=== PATIENT | female | born 1995 | race Caucasian/White ===

== ENCOUNTER 2024-06-08 17:04 | Inpatient (IN) | payer OTHER, SELFPAY ==
[2024-06-08] VITALS (8 sets, daily range): BP systolic 121–137; BP diastolic 63–90; PULSE 86–99; RESP 16; TEMP 36.4–37.4; O2SAT 97; BMI 36.6
--- NOTE | 2024-06-08 17:53 | PM.OBHPLI ---
OB - H&P: HPI Labor/Induction History of Present Illness Time Seen by Provider: 17:53 Date Seen: 06/08/24 Chief Complaint: The patient is a 29 year old 2 para 0 at 37.6 weeks gestation by LMP and consistent with 8 week ultrasound, who presents with for IOL for chronic hypertension on labetalol, polyhydramnios and likely macrosomia. Chief complaint: IOL for Pre-e, poly & macro : 2 Para: 0 Date of last menstrual period: 09/20/23 Estimated date of delivery: 06/26/24 Gestational age based on last menstrual period: 37 Indications for induction: maternal hypertension Narrative: Matt Ragland is a 29 year old female 2 para 0 at 37.6 weeks gestation by LMP and consistent with 8 week ultrasound, who presents with for IOL for chronic hypertension on labetalol, polyhydramnios and likely macrosomia. She has felt well without symptoms of preeclampsia. Labs have been reassuring. EFW 94%, AC > 97%. EFW 3765 grams at 35.6 weeks Polyhydramnios, SDP of 11.9 cm History of Present Dating criteria: based on LMP (consistent with 8 week ultrasound) care: good care Ultrasounds: normal 1st trimester US, normal mid trimester US and abnormal US findings (Poly and likely macrosomia) complications: chronic hypertension Labs Blood type: O (+) positive Rubella: immune RPR/VDLR: nonreactive GBS status: negative HBsAG: negative Review of Systems Status of ROS: Reports: 10 or more systems reviewed and unremarkable except as noted in History and below Meds Home Medications and Allergies Home Medications ?Medication ?Instructions ?Recorded ?Confirmed ?Type aspirin 81 mg tablet,delayed 81 mg PO DAILY 06/08/24 06/08/24 History release doxylamine succinate 25 mg tablet 25 mg PO QHS PRN 06/08/24 06/08/24 History (Unisom (doxylamine)) labetalol 100 mg tablet 100 mg PO BID 06/08/24 06/08/24 History vitamins no.148-iron 27 2 cap PO DAILY 06/08/24 06/08/24 History mg-folate 1 mg-dha 205 mg capsule Allergies Allergy/AdvReac Type Severity Reaction Status Date / Time No Known Drug Allergies Allergy Verified 06/08/24 17:55 OB - H&P: Exam Physical Exam: Vital signs: Temp Pulse Resp BP Pulse Ox 99.3 F 86 16 130/86 97 06/08/24 17:26 06/08/24 17:25 06/08/24 17:26 06/08/24 17:25 06/08/24 17:22 Constitutional: Constitutional: no acute distress Routine HEENT Exam: Head: Present atraumatic and normal inspection Routine Neck Exam: Neck: Present full ROM Detailed Neck Exam: Thyroids: Thyroid: Present normal Routine Respiratory Exam: Respiratory: Present CTA bilaterally Routine Cardiovascular Exam: Cardiovascular: RRR, S1 and S2 Detailed Labor and Delivery Exam: Patient Gravid: Yes Dilation (cm): 0 Effacement (%): 0 Cervix position: posterior Consistency: medium Cervical ripeness score: 1 Tachysystole: No Fetus (Single): Station: -3 Amniotic Membrane Status: intact Heart Rate Baseline: 130 Monitor Accelerations: Present Monitor Decelerations: None Ride Operator Variability: Moderate (6-25) Routine Back/Spine/Pelvis Exam: Back/Spine: full ROM Routine Skin Exam: Present intact Routine Neurological Exam: Present alert and oriented X3 Routine Psychiatric Exam: Present normal affect OB - Problem Based A/P Additional Plan (1) Term : Status: Acute (2) Polyhydramnios affecting : Problem details: SDP last week was 9.7 (KIARA 29) Status: Acute (3) macrosomia: Problem details: Most recent measurement was 94% with abdominal circumference >97% Status: Acute (4) Chronic hypertension affecting : Problem details: on labetalol 200 mg bid. Preeclampsia labs reassuring. Status: Acute Plan - cytotec vaginally now - baseline preeclampsia labs now Delivery/Labor/Induction Plan Plan: induction Induction method: per misoprostol protocol
[2024-06-08] MEDS: miSOPROStoL 25 MCG/0.25 TABLET VAGINAL ×2 (18:13→21:13)
[2024-06-08 18:45] LABS: Hematocrit 36.2 % (33.0-51.0); Mean Corpuscular HGB Conc 33 gm/dL (32-36); Mean Corpuscular Hemoglobin 28 pg (26-34); Mean Corpuscular Volume 84 fL (80-100); Platelet Count* 131 K/uL (140-440); White Blood Count* 8.45 K/uL (4.50-11.00)
[2024-06-08 19:07] LABS: Slide Review Reflex No
[2024-06-08 19:19] LABS: Alanine Aminotransferase* 13 U/L (4-35); Aspartate Amino Transferase* 22 U/L (12-35); Blood Urea Nitrogen* 13 mg/dL (5-24); Creatinine* 0.6 mg/dL (0.5-1.5); Est. Creatinine Clearance* 114.44; Estimated Glomerular Filt Rate 125 ml/min
[2024-06-08] MEDS: LABETALOL HCL 100 MG TABLET 200 MG PO (21:06)
[2024-06-09] VITALS (116 sets, daily range): BP systolic 111–183; BP diastolic 63–112; PULSE 64–96; RESP 16; TEMP 36.4–37; O2SAT 93–100
[2024-06-09] MEDS: miSOPROStoL 25 MCG/0.25 TABLET VAGINAL ×3 (00:13→08:38)
--- NOTE | 2024-06-09 06:57 | P.OBPN_ITS ---
Subjective Time Seen by Provider: 06:57 Date Seen: 06/09/24 Narrative: Patient slept well overnight between cytotec doses. She received 4 doses (last at 0520) vaginally. Objective Exam: resting comfortably, NAD Vital Signs: Last Vital Signs Temp 98.4 F 06/09/24 05:29 Pulse 78 06/09/24 05:26 Resp 16 06/09/24 05:29 BP 118/70 06/09/24 05:26 Pulse Ox 97 06/08/24 17:30 Comments: Blood pressures have been appropriate overnight on current dose of labetalol. Pelvic Exam Dilation (cm): 1 Effacement (%): 60 Station: -2 Comments: medium consistency, anterior cervix. Cephalic position confirmed by ultrasound Contractions Monitor mode: External Contraction Frequency: 2-5 Contraction pattern: Irregular Contraction intensity: Mild Pitocin Rate (mU/min): 0 Assessment Assessment: induction ongoing Station: -2 Status: Category l Heart Rate Baseline: 130 Cutlery Grinder Variability: Moderate (6-25) Monitor Accelerations: Present Monitor Decelerations: None Labor Progress: Esparza score 7. Will have RN team check when due for next cytotec dose. If Esparza score is 8 or more, will start pitocin. If <8 will do additional cytotec dose. Plan Plan: - continue induction of labor - continue monitoring blood pressure
[2024-06-09] MEDS: LABETALOL HCL 100 MG TABLET 200 MG PO ×2 (08:12→19:33)
[2024-06-09] MEDS: ACETAMINOPHEN 500 MG TABLET 1000 MG PO (08:18)
[2024-06-09] MEDS: LACTATED RINGERS 500 ML 500 ML 1000 ML IV (09:42)
[2024-06-09] MEDS: LACTATED RINGERS 1000 ML 1,000 ML 125 ML IV ×2 (12:38→14:22)
[2024-06-09] MEDS: OXYTOCIN 30 unit/500 ML in NS 30 UNIT/500 ML BAG IVPB (12:40)
--- NOTE | 2024-06-09 16:05 | P.OBPN_ITS ---
Subjective Time Seen by Provider: 16:05 Date Seen: 06/09/24 Narrative: Patient is not feeling much for contractions. She is comfortable in bed. She received 5 doses of cytotec and pitocin was started at 12:45. Objective Exam: resting comfortably, NAD Vital Signs: Last Vital Signs Temp 97.6 F 06/09/24 16:03 Pulse 68 06/09/24 16:04 Resp 16 06/09/24 05:29 BP 183/112 H 06/09/24 16:04 Pulse Ox 99 06/09/24 16:02 Pelvic Exam Dilation (cm): 1 Effacement (%): 60 Station: -2 Contractions Monitor mode: External Contraction Frequency: 1-3 Contraction pattern: Irregular Contraction intensity: Mild Pitocin Rate (mU/min): 2 Assessment Assessment: induction ongoing Station: -2 Status: Category l Heart Rate Baseline: 130 Intermediate Variability: Moderate (6-25) Monitor Accelerations: Present Monitor Decelerations: Late (one late decel while declined in recliner. ) Labor Progress: Unfortunately, cervix is still not favorable after 5 doses of cytotec and low dose pitocin. [place] but not feeling any pain. Plan Plan: - After discussion with patient, and Dr. Cifuentes (DIAMOND MOUNTER) about options, we elect to place cook catheter, provide pitocin break and restart pitocin at 1830 this evening with low dose pitocin. - Cook catheter placed with 60 and 60 mls in intrauterine and vaginal balloons-- patient tolerated this well. - unfortunately, patient had persistent bp >160/110 after cook catheter. Required IV labetalol and initiation of magnesium per protocol for superimposed preeclampsia with severe features. - Anticipate
[2024-06-09] MEDS: LABETALOL HCL 5 MG/ML inj IVP ×3 (16:32→19:05)
[2024-06-09] MEDS: MAGNESIUM IV 4 GM/100 ML PIGGYBACK IVPB (16:50)
[2024-06-09] MEDS: MAGNESIUM Infusion 40 GM/1,000 ML IV.SOLN IVPB (17:24)
[2024-06-09 17:44] LABS: Hematocrit 38.7 % (33.0-51.0); Hemoglobin* 12.8 gm/dL (12.0-16.0); Mean Corpuscular HGB Conc 33 gm/dL (32-36); Mean Corpuscular Hemoglobin 28 pg (26-34); Mean Corpuscular Volume 85 fL (80-100); Platelet Count* 131 K/uL (140-440); Red Blood Count 4.53 m/uL (4.00-5.20); Slide Review Reflex No; White Blood Count* 10.97 K/uL (4.50-11.00)
[2024-06-09 18:04] LABS: Alanine Aminotransferase* 13 U/L (4-35); Aspartate Amino Transferase* 25 U/L (12-35); Creatinine* 0.6 mg/dL (0.5-1.5); Est. Creatinine Clearance* 114.44; Estimated Glomerular Filt Rate 125 ml/min
[2024-06-09 18:05] LABS: Blood Urea Nitrogen* 10 mg/dL (5-24)
[2024-06-09 18:42] LABS: Creatinine Urine 31.7 mg/dL; Total Protein Urine 16 mg/dL
[2024-06-09 23:48] LABS: Hematocrit 40.3 % (33.0-51.0); Hemoglobin* 13.4 gm/dL (12.0-16.0); Mean Corpuscular HGB Conc 33 gm/dL (32-36); Mean Corpuscular Hemoglobin 28 pg (26-34); Mean Corpuscular Volume 84 fL (80-100); Platelet Count* 145 K/uL (140-440); White Blood Count* 11.82 K/uL (4.50-11.00)
[2024-06-09 23:54] LABS: Slide Review Reflex No
[2024-06-10] VITALS (266 sets, daily range): BP systolic 95–171; BP diastolic 53–95; PULSE 57–120; RESP 16–18; TEMP 36.4–36.9; O2SAT 61–100
[2024-06-10 00:05] LABS: Alanine Aminotransferase* 13 U/L (4-35); Aspartate Amino Transferase* 26 U/L (12-35); Blood Urea Nitrogen* 8 mg/dL (5-24); Creatinine* 0.5 mg/dL (0.5-1.5); Est. Creatinine Clearance* 137.33; Estimated Glomerular Filt Rate 130 ml/min
[2024-06-10] MEDS: KETOROLAC 30 MG/ML inj IVP (00:07)
[2024-06-10 00:16] LABS: Magnesium* 4.6 mg/dL (1.5-2.6)
[2024-06-10] MEDS: LACTATED RINGERS 1000 ML 1,000 ML 75 ML IV ×3 (04:24→22:15)
[2024-06-10] MEDS: ACETAMINOPHEN 500 MG TABLET 1000 MG PO ×2 (05:35→13:44)
[2024-06-10] MEDS: LABETALOL HCL 100 MG TABLET 200 MG PO ×2 (06:28→19:05)
[2024-06-10 07:27] LABS: Hematocrit 39.8 % (33.0-51.0); Hemoglobin* 13.2 gm/dL (12.0-16.0); Mean Corpuscular HGB Conc 33 gm/dL (32-36); Mean Corpuscular Hemoglobin 28 pg (26-34); Mean Corpuscular Volume 84 fL (80-100); Platelet Count* 155 K/uL (140-440); Red Blood Count 4.72 m/uL (4.00-5.20); White Blood Count* 12.19 K/uL (4.50-11.00)
[2024-06-10 07:29] LABS: Slide Review Reflex No
--- NOTE | 2024-06-10 07:47 | PM.OBPNL ---
Subjective Time Seen by Provider: 07:48 Date Seen: 06/10/24 Narrative: Patient feels contractions are a bit more painful. She breathes through some. Tolerating magnesium without difficulty. Had episode last evening of severe range blood pressures requiring 20,40,60 and then 80 of labetalol. We dosed her next dose of oral labetalol and things improved. She did not have any high range blood pressures overnight. Objective Exam: Standing at bedside, heating pad on back. Vital Signs: Last Vital Signs Temp 98.1 F 06/10/24 07:03 Pulse 77 06/10/24 07:06 Resp 16 06/10/24 07:03 BP 134/92 H 06/10/24 07:06 Pulse Ox 99 06/10/24 07:08 Pelvic Exam Dilation (cm): 5 Effacement (%): 80 Station: -2 Contractions Monitor mode: External Contraction pattern: Regular Contraction intensity: Strong/Firm Pitocin Rate (mU/min): 12 Assessment Assessment: induction ongoing Station: -2 Amniotic Membrane Status: SROM Status: Category l Heart Rate Baseline: 120 Card Hanger Variability: Moderate (6-25) Monitor Accelerations: Present Monitor Decelerations: Variable Labor Progress: Slow progress Plan Plan: - continue to titrate pitocin - If not making change on next check, have discussed Internal monitors - plans on epidural, will likely get soon. - continuing to monitor blood pressures.
[2024-06-10 07:52] LABS: Creatinine* 0.5 mg/dL (0.5-1.5); Est. Creatinine Clearance* 137.33; Estimated Glomerular Filt Rate 130 ml/min
[2024-06-10 07:53] LABS: Alanine Aminotransferase* 13 U/L (4-35); Aspartate Amino Transferase* 25 U/L (12-35); Blood Urea Nitrogen* 8 mg/dL (5-24)
[2024-06-10 07:59] LABS: Magnesium* 5.1 mg/dL (1.5-2.6)
[2024-06-10] MEDS: ROPIVACAINE 0.2% 100 ml 100 ML 12 MG EPIDURAL ×2 (09:55→16:56)
[2024-06-10] MEDS: BUPIVACAINE 0.25% PF 10 ML 10 ML ML EPIDURAL (09:56)
--- NOTE | 2024-06-10 10:08 | P.ANBPRC_ITS ---
PFSH PFSH Social History What is your current living situation?: I presently have a place to live Problems where you live: no known problems In the past 12 months, utilities in danger of being shut off: no In past 12 months, lack of transportation kept you from medical appts, meetings, work, or getting things needed for daily living: no In the past 12 mos, have been you worried that your food would run out before you had money to buy more?: never true In the past 12 mos, the food you bought just didn't last and you didn't have money to buy more?: never true Smoking Status: Never smoker How often does anyone, including family, friends and others, physically hurt you : never How often does anyone, including family, friends and others, insult or talk down to you: never How often does anyone, including family, friends and others, threaten you with harm: never How often does anyone, including family, friends and others, scream or curse at you: never Meds Home Medications and Allergies Home Medications ?Medication ?Instructions ?Recorded ?Confirmed ?Type aspirin 81 mg tablet,delayed 81 mg PO DAILY 06/08/24 06/08/24 History release doxylamine succinate 25 mg tablet 25 mg PO QHS PRN 06/08/24 06/08/24 History (Unisom (doxylamine)) labetalol 100 mg tablet 200 mg PO BID 06/08/24 06/08/24 History vitamins no.148-iron 27 2 cap PO DAILY 06/08/24 06/08/24 History mg-folate 1 mg-dha 205 mg capsule Allergies Allergy/AdvReac Type Severity Reaction Status Date / Time No Known Drug Allergies Allergy Verified 06/08/24 17:55 Results Labs Labs: Laboratory Results - last 24 hr 06/09/24 06/09/24 06/09/24 16:58 17:39 23:30 WBC 10.97 11.82 H RBC 4.53 4.80 Hgb 12.8 13.4 Hct 38.7 40.3 MCV 85 84 MCH 28 28 MCHC 33 33 Plt Count 131 L 145 BUN 10 8 Creatinine 0.6 0.5 Estimated Creat Clear 114.44 137.33 Estimated GFR 125 130 Magnesium 4.6 H* AST 25 26 ALT 13 13 Urine Creatinine 31.7 Protein/Creatinin Ratio 0.50 H Urine Total Protein 16 06/10/24 06:30 WBC 12.19 H RBC 4.72 Hgb 13.2 Hct 39.8 MCV 84 MCH 28 MCHC 33 Plt Count 155 BUN 8 Creatinine 0.5 Estimated Creat Clear 137.33 Estimated GFR 130 Magnesium 5.1 H* AST 25 ALT 13 Urine Creatinine Protein/Creatinin Ratio Urine Total Protein Vital Signs Vital Signs: Last Vital Signs Temp 98 F 06/10/24 10:00 Pulse 72 06/10/24 10:07 Resp 16 06/10/24 07:03 BP 128/90 H 06/10/24 10:07 Pulse Ox 99 06/10/24 10:08 Weight: 92.986 kg Height: 160.02 cm Anesthesia Procedures Epidural Insertion Patient Location: OB Start Time: : Stop Time: : Start Date: 06/10/24 Stop Date: 06/10/24 Reason for Block: procedure for pain Patient Position: sitting Performed By: Vernon Brumfield Preanesthetic Checklist: IV checked, risks and benefits discussed, monitors and equipment checked, pre-op evaluation, timeout performed and anesthesia consent Prep: chlorhexidine gluconate Monitoring: blood pressure monitoring, continuous pulse oximetry and heart rate Approach: midline Vertebral Space: lumbar (1-5) Epidural Technique: BENNIE saline Needle Type: Tuohy needle Injection Technique: continuous catheter Needle gauge: 17 Needle Length (cm): 10 cm Needle Insertion Depth (cm): 7 Catheter Gauge: 19 Catheter Type: multi-orifice Catheter at skin depth (cm): 13 Test Dose Result: negative and lidocaine 1.5% with epinephrine 1 to 200,000
[2024-06-10] MEDS: MAGNESIUM Infusion 40 GM/1,000 ML IV.SOLN IVPB (10:27)
[2024-06-10 11:09] LABS: Hematocrit 39.7 % (33.0-51.0); Hemoglobin* 13.1 gm/dL (12.0-16.0); Mean Corpuscular HGB Conc 33 gm/dL (32-36); Mean Corpuscular Hemoglobin 28 pg (26-34); Mean Corpuscular Volume 85 fL (80-100); Platelet Count* 141 K/uL (140-440); Red Blood Count 4.68 m/uL (4.00-5.20); White Blood Count* 12.03 K/uL (4.50-11.00)
[2024-06-10 11:10] LABS: Slide Review Reflex No
[2024-06-10] MEDS: PHENYLEPHRINE 100 MCG/ML SYRINGE IVP (11:21)
[2024-06-10 11:24] LABS: Creatinine* 0.7 mg/dL (0.5-1.5); Est. Creatinine Clearance* 98.09; Estimated Glomerular Filt Rate 120 ml/min
[2024-06-10 11:25] LABS: Alanine Aminotransferase* 14 U/L (4-35); Aspartate Amino Transferase* 27 U/L (12-35); Blood Urea Nitrogen* 8 mg/dL (5-24)
[2024-06-10 11:27] LABS: Magnesium* 5.7 mg/dL (1.5-2.6)
--- NOTE | 2024-06-10 11:28 | P.OBPN_ITS ---
Subjective Time Seen by Provider: 11: Date Seen: 06/10/24 Narrative: comfortable with Epidural, slightly shaky Objective Exam: resting comfortably, NAD Vital Signs: Last Vital Signs Temp 98 F 06/10/24 10:00 Pulse 77 06/10/24 11:28 Resp 16 06/10/24 07:03 BP 108/63 06/10/24 11:28 Pulse Ox 100 06/10/24 11:28 Pelvic Exam Dilation (cm): 5 Effacement (%): 80 Station: -2 Contractions Monitor mode: External Contraction Frequency: 4 Contraction pattern: Regular Contraction intensity: Strong/Firm Pitocin Rate (mU/min): 12 Assessment Assessment: induction ongoing Station: -2 Amniotic Membrane Status: SROM Status: Category l Heart Rate Baseline: 115 Residential Variability: Moderate (6-25) Monitor Accelerations: Present Monitor Decelerations: Variable Plan Plan: - Internal monitors placed, will titrate to adequte MVUs. - hypotensive after epidural, treated appropriately by nursing - continue to monitor closely -Dr. Damian Tovar (AIR CONTROL ELECTRONICS OPERATOR) given update in case of failure to progress
[2024-06-10] MEDS: LACTATED RINGERS 1000 ML 1,000 ML IV (13:36)
--- NOTE | 2024-06-10 15:09 | P.OBPN_ITS ---
Subjective Time Seen by Provider: 15:09 Date Seen: 06/10/24 Narrative: Patient's heart tracing has had some decreased variability with small accels. No decels. We have tried juice, fluid bolus, position changes without change in variability. Objective Exam: resting comfortably Vital Signs: Last Vital Signs Temp 98 F 06/10/24 15:04 Pulse 99 06/10/24 15:08 Resp 16 06/10/24 07:03 BP 118/70 06/10/24 15:08 Pulse Ox 98 06/10/24 15:09 Pelvic Exam Dilation (cm): 5-6 Effacement (%): 80 Station: -2 Comments: (Exam per nursing) Contractions Monitor mode: External Contraction Frequency: 5 Contraction pattern: Regular Contraction intensity: Strong/Firm Pitocin Rate (mU/min): 19 Assessment Assessment: induction ongoing Station: -2 Amniotic Membrane Status: SROM Status: Category l Heart Rate Baseline: 115 Clinical Trials Assistant Variability: Minimal (3-5) Monitor Accelerations: Present Monitor Decelerations: None Tracing Comments: I reviewed FHT with Dr. Damian Tovar who is BLOW MACHINE TENDER STARCH [employer]AYING on today. She reviewed strip and agreed there was decreased variability. However, given no decels, felt it was appropriate to continue induction of labor at this time. We discussed that if decels were to occur, that would be sign of distress and would be indication for delivery. Labor Progress: IUPC in place, not quite adequate MVUs. Good labor pattern. Continuing to titrate pitocin to maximum of 30 units of pitocin. Plan Plan: - Continue continuous FHT - continue titration of pitocin until MVU adequate
[2024-06-10 17:05] LABS: Hematocrit 37.5 % (33.0-51.0); Hemoglobin* 12.4 gm/dL (12.0-16.0); Mean Corpuscular HGB Conc 33 gm/dL (32-36); Mean Corpuscular Hemoglobin 28 pg (26-34); Mean Corpuscular Volume 85 fL (80-100); Platelet Count* 138 K/uL (140-440); White Blood Count* 12.23 K/uL (4.50-11.00)
[2024-06-10 17:06] LABS: Slide Review Reflex No
[2024-06-10] MEDS: LIDOCAINE 2% (PF) 5 ML VIAL EPIDURAL (17:19)
[2024-06-10 17:21] LABS: Alanine Aminotransferase* 13 U/L (4-35); Aspartate Amino Transferase* 25 U/L (12-35); Blood Urea Nitrogen* 9 mg/dL (5-24); Creatinine* 0.8 mg/dL (0.5-1.5); Est. Creatinine Clearance* 85.83; Estimated Glomerular Filt Rate 102 ml/min
[2024-06-10 17:25] LABS: Magnesium* 5.9 mg/dL (1.5-2.6)
[2024-06-10] MEDS: fentaNYL 100 MCG/2 ML inj EPIDURAL ×2 (18:18→21:29)
--- NOTE | 2024-06-10 18:47 | P.OBPN_ITS ---
Subjective Time Seen by Provider: 18:30 Date Seen: 06/10/24 Narrative: Mom noting some back pain on right with contractions, anesthesia just adjusted epidural due to prior abdominal pain window which has improved. BP's below treatable levels per RN. Objective Vital Signs: Last Vital Signs Temp 97.6 F 06/10/24 18:07 Pulse 79 06/10/24 18:20 Resp 16 06/10/24 07:03 BP 137/91 H 06/10/24 18:20 Pulse Ox 100 06/10/24 18:45 Pelvic Exam Dilation (cm): 10 Effacement (%): 100 Station: -1 Contractions Monitor mode: Internal Contraction Frequency: q3-5min Contraction pattern: Regular Contraction intensity: Strong/Firm Pitocin Rate (mU/min): 23 Assessment Assessment: active labor Station: -1 Amniotic Membrane Status: SROM Heart Rate Baseline: 120 Lodging House Keeper Variability: Minimal (3-5) Monitor Accelerations: Present Monitor Decelerations: None Plan Plan: pt has made significant change, now complete, plan to start pushing. OB surgeon system integration engineer and peds provider updated with plan. BP's below IV treatment levels, continue to monitor
[2024-06-10] MEDS: ONDANSETRON 2 MG/ML inj 4 MG IV (19:32)
[2024-06-10] MEDS: LIDOCAINE 2% (PF) 5 ML VIAL 3 ML EPIDURAL (21:30)
--- NOTE | 2024-06-10 22:13 | PM.OBPNL ---
Subjective Time Seen by Provider: 22:13 Date Seen: 06/10/24 Narrative: Patient had been pushing x 2.5 hours, No significant changes. Objective Exam: Uncomfortable. Vital Signs: Last Vital Signs Temp 97.6 F 06/10/24 18:07 Pulse 88 06/10/24 22:10 Resp 16 06/10/24 07:03 BP 133/74 06/10/24 22:10 Pulse Ox 99 06/10/24 22:13 Pelvic Exam Dilation (cm): 10 Effacement (%): 100 Station: +1 Contractions Monitor mode: Internal Contraction pattern: Regular Contraction intensity: Strong/Firm Pitocin Rate (mU/min): 23 Assessment Assessment: active labor Station: +1 Amniotic Membrane Status: SROM Status: Category l Heart Rate Baseline: 110 Halfway Variability: Minimal (3-5) Monitor Accelerations: Present Monitor Decelerations: None Plan Plan: - Given 2.5 hours of pushing, now with minimal variability. Poor control of pain with Epidural. Discussed with Anesthesia ([place]) and Riveter Pneumatic (Cesia Tovar) who agree with . Will turn off pitocin and epidural so that we may proceed with spinal anesthesia.
--- NOTE | 2024-06-10 22:16 | P.OBPN_ITS ---
Subjective Time Seen by Provider: 20:30 Date Seen: 06/10/24 Narrative: Pt has been pushing for approximately 90min. She has tried various pushing positions and only tolerates pushing in high fowlers position. Objective Vital Signs: Last Vital Signs Temp 97.6 F 06/10/24 18:07 Pulse 88 06/10/24 22:10 Resp 16 06/10/24 07:03 BP 133/74 06/10/24 22:10 Pulse Ox 99 06/10/24 22:13 Pelvic Exam Dilation (cm): 10 Effacement (%): 100 Station: +1 Contractions Monitor mode: External Contraction Frequency: q3-4min Contraction pattern: Regular Contraction intensity: Strong/Firm Pitocin Rate (mU/min): 23 Assessment Assessment: active labor Station: +1 Amniotic Membrane Status: SROM Heart Rate Baseline: 120 Residential Variability: Minimal (3-5) Monitor Accelerations: Present Monitor Decelerations: Variable Tracing Comments: minimal-moderate variability. Plan Plan: Pt has been pushing for approximately 90min. She appears to be pushing affectively when I check her while pushing. Her last 2 pushes appear to be making more progress. Dr Yoon is now present and will be taking over labor management and I will remain here for pediatric coverage for baby. BP's have remained below treatment levels except for one that was taken in middle pushing, recheck was below treatment level.
[2024-06-10] MEDS: AZITHROMYCIN 500 MG in 0.9 % SODIUM CHLORIDE 250 ml 250 ML 255 MG IVPB (22:30)
[2024-06-10] MEDS: TRANEXAMIC ACID 100 MG/ML INJ 1000 MG IV (22:33)
--- NOTE | 2024-06-10 22:40 | P.OBCN_ITS ---
OB - CN: HPI Date of Consult Time Seen by Provider: 22:40 Date Seen: 06/10/24 Patient: Betzaida Patient Consult date: 06/10/24 Requesting Physician: Sona Yoon MD Primary Care Provider: Sona Yoon MD Consult Narrative Narrative: The patient is a 29 year old G 2 P 0 at 38w1d gestation that was admitted to the Center on 06/08/24 for induction of labor for preeclampsia with severe features. She progressed to completely dilated by 6:00 p.m. on 06/10/2024. She pushed for 3 hours without much progress of the vertex. There is concern for macrosomia and polyhydramnios. She is currently on magnesium. History of Present Dating criteria: based on LMP care: good care Ultrasounds: normal 1st trimester US and normal mid trimester US complications: chronic hypertension History History 2 Elective abortions Para 0 Spontaneous abortions Hx # Term Pregnancies Ectopic pregnancies Hx # Pregnancies Multiple births Number of Living Children 0 Labs Blood type: O (+) positive Rubella: immune RPR/VDLR: nonreactive GBS status: negative HBsAG: negative OB Labs: Lab Assessment Start: 06/08/24 17:14 Freq: ONCE Status: Complete Protocol: PC.OBGBS Activity Type Activity Date Activity User E-sign Co-sign Detail Recorded Client Recorded Date Recorded By Document 06/08/24 18:43 WK Desktop 06/08/24 18:44 WK 06/08/24 18:43 Lab Assessment GBS Status negative GBS Additional Criteria None No Treatment Needed OK Are Labs Available Yes Maternal Blood Type O Maternal RH Factor Positive Evaluate Maternal Rubella Immune Status Immune Hepatitis B Surface Antigen Negative Maternal HIV Status Negative Maternal Syphillis (RPR) Status Negative PFSH PFSH Social History What is your current living situation?: I presently have a place to live Problems where you live: no known problems In the past 12 months, utilities in danger of being shut off: no In past 12 months, lack of transportation kept you from medical appts, meetings, work, or getting things needed for daily living: no In the past 12 mos, have been you worried that your food would run out before you had money to buy more?: never true In the past 12 mos, the food you bought just didn't last and you didn't have money to buy more?: never true Smoking Status: Never smoker How often does anyone, including family, friends and others, physically hurt you : never How often does anyone, including family, friends and others, insult or talk down to you: never How often does anyone, including family, friends and others, threaten you with harm: never How often does anyone, including family, friends and others, scream or curse at you: never Meds Home Medications and Allergies Home Medications ?Medication ?Instructions ?Recorded ?Confirmed ?Type aspirin 81 mg tablet,delayed 81 mg PO DAILY 06/08/24 06/08/24 History release doxylamine succinate 25 mg tablet 25 mg PO QHS PRN 06/08/24 06/08/24 History (Unisom (doxylamine)) labetalol 100 mg tablet 200 mg PO BID 06/08/24 06/08/24 History vitamins no.148-iron 27 2 cap PO DAILY 06/08/24 06/08/24 History mg-folate 1 mg-dha 205 mg capsule Allergies Allergy/AdvReac Type Severity Reaction Status Date / Time No Known Drug Allergies Allergy Verified 06/08/24 17:55 OB - H&P: Exam Physical Exam: Vital signs: Temp Pulse Resp BP Pulse Ox 97.6 F 92 16 136/86 99 06/10/24 18:07 06/10/24 22:28 06/10/24 07:03 06/10/24 22:28 06/10/24 22:38 Narrative: General: Pleasant, woman in no acute distress. Vital signs: Included in her electronic medical record. EFM: 130's, moderate variability, no decels, category 2. TOCO: Q10min. SVE: complete/+1 OB - Results Labs Labs: Short CBC 06/09/24 06/10/24 06/10/24 Range/Units 23:30 06:30 11:02 WBC 11.82 H 12.19 H 12.03 H (4.50-11.00) K/uL Hgb 13.4 13.2 13.1 (12.0-16.0) gm/dL Hct 40.3 39.8 39.7 (33.0-51.0) % Plt Count 145 155 141 (140-440) K/uL 09/28/24 Range/Units 17:00 WBC 12.23 H (4.50-11.00) K/uL Hgb 12.4 (12.0-16.0) gm/dL Hct 37.5 (33.0-51.0) % Plt Count 138 L (140-440) K/uL BMP 06/09/24 06/10/24 06/10/24 23:30 06:30 11:02 BUN 8 8 8 Creatinine 0.5 0.5 0.7 06/10/24 17:00 BUN 9 Creatinine 0.8 Liver Function 06/09/24 06/10/24 06/10/24 Range/Units 23:30 06:30 11:02 AST 26 25 27 (12-35) U/L ALT 13 13 14 (4-35) U/L 06/10/24 Range/Units 17:00 AST 25 (12-35) U/L ALT 13 (4-35) U/L OB - CN: A/P Assessment and Plan (1) Term : Status: Acute (2) Polyhydramnios affecting : Problem details: SDP last week was 9.7 (KIARA 29) Status: Acute (3) macrosomia: Problem details: Most recent measurement was 94% with abdominal circumference >97% Status: Acute (4) Chronic hypertension affecting : Problem details: on labetalol 200 mg bid. Preeclampsia labs reassuring. Status: Acute Plan 1. Recommended primary low transverse section for arrest of descent. 2. Consent for primary low transverse section reviewed and signed.
--- NOTE | 2024-06-10 22:52 | P.PCN_ITS ---
Procedure Note Date Seen: 06/10/24 Date of procedure: 06/10/24 Will [facility] bill your pro fee for this procedure?: Yes Procedure: Preoperative diagnosis: 29-year-old 2 para 0 at 38 and 1/7 weeks Arrest of descent Polyhydramnios Suspected macrosomia Severe preeclampsia by blood pressure criteria Postoperative diagnosis: Same Procedure: Primary low-transverse section Anesthesia: Spinal Surgeon: Cesia Vázquez MD Client Service Consultant: Not applicable Quantitative blood loss: 463 mL IV Fluid: 650 mL Urine output: 600 mL clear fluid. Specimen: Placenta to pathology Drain(s): Martino to gravity Indications: Arrest of descent. Findings: A live male was delivered from the LOT position at 11:31 p.m.. Apgars were 7 at 1 min and 9 at 5 min, respectively. weight: 7 lb 10 oz. Nuchal cord(s): No. The placenta was delivered spontaneously and complete at 11:33 p.m. Amniotic fluid: Clear. Normal uterus, fallopian tubes and ovaries were noted. Other findings: The infant's head was significantly impacted in the pelvis that required a push from the vagina in order to deliver the 's head through the surgical field. After delivery of the placenta there was extensive uterine atony treated with 40 units Pitocin in 1 L IV fluid, g IV TXA, 1 dose Methergine 0.2 mg IM and Bakri balloon placed with 240 mL of fluid. Blood pressure at the time Methergine was given 99/60. Procedure: Matt was taken to the OR where spinal anesthetic was found be adequate. A Martino catheter was placed. The patient was then placed in the dorsal supine position with a leftward tilt. She was then prepped and draped in a normal sterile manner. A Pfannenstiel skin incision was made and carried through sharply to the underlying layer of fascia. Fascia was incised in the midline and this incision carried laterally with Almonte scissors. The superior aspect of fascial incision was grasped with Kieran clamps, tented up, and the rectus muscles dissected off with a combination of blunt and sharp dissection. The inferior aspect of the fascial incision was not dissected off the rectus. The rectus muscles were in the midline. The peritoneum was entered bluntly. This opening was extended bluntly. An Dinh-O self-retaining retractor was placed. A bladder flap was not created. Uterus was incised in a low transverse manner in the midline. This incision carried laterally with blunt pressure on the inferior and superior aspects of the uterine incision. The amniotic sac was ruptured. The 's head and body was delivered atraumatically. The infant was shown to the patient and her support person and then handed to waiting pediatric and nursing staff. The cord was clamped and cut 30 seconds after delivery. The placenta was delivered spontaneously. The uterus was cleared of clots and debris. The uterine incision was re-approximated with the uterus in vivo. The 1st layer using 0-Vicryl in a running, locked manner. The 2nd layer using 0-Monocryl in a running, vertical, imbricating layer. Additional sutures needed for hemostasis: Yes, 2 sutures of 2-0 chromic in a [id number] manner. Excellent hemostasis was verified. The Dinh retractor was removed. The rectus muscles were not reapproximated. The rectus muscles were then closely inspected to verify hemostasis. Hemostasis was obtained with bipolar cautery. The fascia was then re-approximated using 0-Maxon loop in a running manner. The subcutaneous tissue was then irrigated with saline and hemostasis obtained with bipolar cautery. The subcutaneous tissue was re-approximated using 3-0 plain gut in an interrupted manner. The skin was reapproximated using 4-0 Monocryl in a running subcuticular manner. Exophin skin adhesive and a Mepiplex dressing were applied. The patient tolerated this procedure well. Sponge, lap and instrument counts were correct x2 active to the procedure. Patient was taken to the recovery area in stable condition. The patient received 2g of IV Ancef and 500mg IV of azithromycin prior to skin incision.
[2024-06-10] MEDS: CEFAZOLIN 2 GM INJ IVP (23:20)
--- NOTE | 2024-06-10 23:54 | PM.OBPNL ---
Subjective Time Seen by Provider: 23:54 Date Seen: 06/10/24 Narrative: I was asked to stand by as pediatric provider by Dr Yoon for delivery due to maternal severe preeclampsia on magnesium, polyhydramnios and anticipated macrosomia. Stand by time was from 20:30-23:15am ([id number]). Objective Vital Signs: Last Vital Signs Temp 97.6 F 06/10/24 18:07 Pulse 92 06/10/24 22:28 Resp 16 06/10/24 07:03 BP 136/86 06/10/24 22:28 Pulse Ox 99 06/10/24 22:48
[2024-06-11] VITALS (45 sets, daily range): BP systolic 107–153; BP diastolic 67–103; PULSE 70–94; RESP 16–20; TEMP 36.5–36.9; O2SAT 97–100
--- NOTE | 2024-06-11 00:55 | W.ANESCHARGE ---
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
--- NOTE | 2024-06-11 00:55 | W.PM.NB ---
Nerve Block Nerve Block Time Seen by Provider: 00:20 Date Seen: 06/11/24 Type of block requested by surgeon for post-operative analgesia: TAP Side: bilateral Time out performed: Yes Verification of patient name: Yes Verification of date of : Yes Site marking: site marked Name of person performing procedure: Vernon Brumfield Continuous monitoring Was continuous monitoring of O2 sat, B/P, diagnostic cardiac sonographer, recorded every 15 minutes?: Yes Procedure Checklist: sterile prep, needles and gloves Ultrasound guided. Images saved: Yes Medications given in 5ml increments after negative aspiration: Marcaine %: 0.25 mL: 30 Needle gauge: 20 and Exparel mL: 10 Needle gauge: 20 Patient tolerated procedure well: Yes Additional comments: Injected in 5 mL increments after negative aspiration Block Charges Block Charge (with Pro Fee): TAP Bilateral Use of Ultrasound Machine for Block: Yes- US Guidance/pain block
[2024-06-11 05:33] LABS: Rapid Plasma Reagin (RPR) Non Reactive (Non Reactive)
[2024-06-11] MEDS: KETOROLAC 30 MG/ML inj IVP ×3 (06:00→18:30)
[2024-06-11] MEDS: MAGNESIUM Infusion 40 GM/1,000 ML IV.SOLN IVPB (06:22)
[2024-06-11 07:08] LABS: Hematocrit 34.8 % (33.0-51.0); Hemoglobin* 11.7 gm/dL (12.0-16.0); Mean Corpuscular HGB Conc 34 gm/dL (32-36); Mean Corpuscular Hemoglobin 29 pg (26-34); Mean Corpuscular Volume 85 fL (80-100); Platelet Count* 148 K/uL (140-440); White Blood Count* 18.54 K/uL (4.50-11.00)
[2024-06-11 07:12] LABS: Slide Review Reflex No
[2024-06-11 07:31] LABS: Alanine Aminotransferase* 14 U/L (4-35); Aspartate Amino Transferase* 35 U/L (12-35); Blood Urea Nitrogen* 8 mg/dL (5-24); Creatinine* 0.7 mg/dL (0.5-1.5); Est. Creatinine Clearance* 98.09; Estimated Glomerular Filt Rate 120 ml/min
[2024-06-11 07:36] LABS: Magnesium* 5.9 mg/dL (1.5-2.6)
[2024-06-11] MEDS: NIFEdipine 30 MG TAB.ER.24 PO (08:12)
[2024-06-11] MEDS: LABETALOL HCL 100 MG TABLET 200 MG PO ×2 (08:13→21:32)
[2024-06-11] MEDS: LACTATED RINGERS 1000 ML 1,000 ML 75 ML IV (08:42)
--- NOTE | 2024-06-11 09:08 | PM.OBPNVD1 ---
OB - PN:Subj Subjective Time Seen by Provider: 09:08 Date Seen: 06/11/24 Patient comments OB post-: no complaints, pain well controlled and tolerating diet Tranquillity infant status: Tranquillity feeding status: exclusively Narrative: Matt is postop day 1 from a primary low-transverse performed at 11:31 p.m. on 06/10/2024 for arrest of descent. Her delivery was also complicated by a long induction of labor, polyhydramnios and chronic hypertension with superimposed preeclampsia with severe features. She is currently on magnesium for seizure prophylaxis until she is 24 hours . She has a Bakri balloon in place due to uterine atony at the time of . That will be removed at 11:30 a.m. this morning. There has been minimal uterine bleeding. The patient states she is doing well other than feeling somewhat drowsy on the magnesium and being sleep deprived as the baby has been awake for most of the night. Having some latch issues with breast-feeding but is doing well otherwise. Denies having any problems with pain control. Not passed flatus as yet but is tolerating a regular diet. OB - PN: Obj Exam Physical Exam: Vital signs: Temp Pulse Resp BP Pulse Ox O2 Del Method 98.4 F 82 18 133/80 98 Room Air 06/11/24 05:50 06/11/24 06:50 06/11/24 08:09 06/11/24 06:50 06/11/24 06:50 06/11/24 06:50 Narrative: General: Pleasant, woman in no acute distress. Vital signs: Included in her medical record. Blood pressure has varied from 125-153/77-100 Heart: Regular rate and rhythm without gallop, rub or murmur. Chest: Clear to auscultation bilaterally. Abdomen: Soft, moderately distended normal bowel sounds throughout. Fundus firm at 2 cm below the umbilicus in the midline. Incision: Dressing in place, clean, dry and intact. Extremities: No pain or edema, SCDs in place. OB - PN: Obj Data Labs Labs: Laboratory Results - last 24 hr 06/08/24 06/10/24 06/10/24 18:38 11:02 17:00 WBC 12.03 H 12.23 H RBC 4.68 4.40 Hgb 13.1 12.4 Hct 39.7 37.5 MCV 85 85 MCH 28 28 MCHC 33 33 Plt Count 141 138 L BUN 8 9 Creatinine 0.7 0.8 Estimated Creat Clear 98.09 85.83 Estimated GFR 120 102 Magnesium 5.7 H* 5.9 H* AST 27 25 ALT 14 13 RPR Screen Non Reactive Blood Type Antibody Screen 06/10/24 06/11/24 22:13 05:42 WBC 18.54 H RBC 4.10 Hgb 11.7 L Hct 34.8 MCV 85 MCH 29 MCHC 34 Plt Count 148 BUN 8 Creatinine 0.7 Estimated Creat Clear 98.09 Estimated GFR 120 Magnesium 5.9 H* AST 35 ALT 14 RPR Screen Blood Type O Positive Antibody Screen NEGATIVE OB - PN: A/P Delivery Assessment and Plan (1) Pre-eclampsia, severe: Status: Acute (2) Status post primary low transverse section: Problem details: Boy at 23:31, Gorge, Dieter#10oz. Apgars 7/9. Status: Acute Plan 1. Continue magnesium for seizure prophylaxis until 11:31 p.m. 2. Discontinue Bakri balloon at 11:30 a.m. 3. Continue postop care. 4. Continue labetalol 200 mg p.o. b.i.d. and nifedipine ER 30 mg daily for blood pressure control.
[2024-06-11 11:08] LABS: Hematocrit 31.1 % (33.0-51.0); Hemoglobin* 10.3 gm/dL (12.0-16.0); Mean Corpuscular HGB Conc 33 gm/dL (32-36); Mean Corpuscular Hemoglobin 28 pg (26-34); Mean Corpuscular Volume 85 fL (80-100); Platelet Count* 141 K/uL (140-440); Red Blood Count 3.65 m/uL (4.00-5.20); Slide Review Reflex No; White Blood Count* 18.31 K/uL (4.50-11.00)
[2024-06-11 11:23] LABS: Alanine Aminotransferase* 13 U/L (4-35); Aspartate Amino Transferase* 27 U/L (12-35); Blood Urea Nitrogen* 7 mg/dL (5-24); Creatinine* 0.7 mg/dL (0.5-1.5); Est. Creatinine Clearance* 98.09; Estimated Glomerular Filt Rate 120 ml/min
[2024-06-11 11:26] LABS: Magnesium* 5.9 mg/dL (1.5-2.6)
[2024-06-11] MEDS: DOCUSATE SODIUM 100 MG CAPSULE PO (13:09)
[2024-06-11 17:02] LABS: Hematocrit 28.3 % (33.0-51.0); Hemoglobin* 9.5 gm/dL (12.0-16.0); Mean Corpuscular HGB Conc 34 gm/dL (32-36); Mean Corpuscular Hemoglobin 29 pg (26-34); Mean Corpuscular Volume 86 fL (80-100); Platelet Count* 140 K/uL (140-440); Red Blood Count 3.31 m/uL (4.00-5.20); White Blood Count* 16.01 K/uL (4.50-11.00)
[2024-06-11 17:05] LABS: Slide Review Reflex No
[2024-06-11 17:17] LABS: Alanine Aminotransferase* 12 U/L (4-35); Aspartate Amino Transferase* 27 U/L (12-35); Blood Urea Nitrogen* 10 mg/dL (5-24); Creatinine* 0.7 mg/dL (0.5-1.5); Est. Creatinine Clearance* 98.09; Estimated Glomerular Filt Rate 120 ml/min
[2024-06-11 17:20] LABS: Magnesium* 5.8 mg/dL (1.5-2.6)
[2024-06-11 23:44] LABS: Hemoglobin* 8.8 gm/dL (12.0-16.0); Mean Corpuscular HGB Conc 33 gm/dL (32-36); Mean Corpuscular Hemoglobin 28 pg (26-34); Mean Corpuscular Volume 87 fL (80-100); Platelet Count* 148 K/uL (140-440); Red Blood Count 3.11 m/uL (4.00-5.20); White Blood Count* 13.74 K/uL (4.50-11.00)
[2024-06-11 23:45] LABS: Slide Review Reflex No
[2024-06-11 23:50] LABS: Creatinine* 0.6 mg/dL (0.5-1.5); Est. Creatinine Clearance* 114.44; Estimated Glomerular Filt Rate 125 ml/min
[2024-06-11 23:51] LABS: Alanine Aminotransferase* 14 U/L (4-35); Aspartate Amino Transferase* 27 U/L (12-35); Blood Urea Nitrogen* 9 mg/dL (5-24)
[2024-06-12] VITALS (7 sets, daily range): BP systolic 115–137; BP diastolic 73–87; PULSE 71–81; RESP 16–17; TEMP 36.6–37.2; O2SAT 97–100
[2024-06-12 00:01] LABS: Magnesium* 5.6 mg/dL (1.5-2.6)
[2024-06-12] MEDS: LANOLIN CREAM 1 APPLIC TOPICAL (03:48)
[2024-06-12] MEDS: KETOROLAC 30 MG/ML inj IVP ×2 (06:21)
[2024-06-12] MEDS: NIFEdipine 30 MG TAB.ER.24 PO (09:12)
[2024-06-12] MEDS: LABETALOL HCL 100 MG TABLET 200 MG PO ×2 (09:13→21:08)
[2024-06-12] MEDS: DOCUSATE SODIUM 100 MG CAPSULE PO ×2 (09:13→21:08)
[2024-06-12] MEDS: IBUPROFEN 600 MG TABLET PO ×2 (15:01→21:07)
[2024-06-12] MEDS: ACETAMINOPHEN 500 MG TABLET 1000 MG PO ×2 (15:01→21:08)
--- NOTE | 2024-06-12 16:37 | P.OBPN_ITS ---
OB - PN:Subj Subjective Date Seen: 06/12/24 Patient comments OB post-: no complaints, pain well controlled and tolerating diet Narrative: The patient feels well. Her incisional pain control has been adequate. She is mostly bothered when she is moving around and ambulating, at which time she describes some burning discomfort along the length of the incision. Her blood pressure has been under good control today on labetalol 200 mg b.i.d.. The magnesium sulfate infusion was discontinued around 11:00 p.m. last evening. She denies headaches, visual changes, right upper quadrant pain, or worsening swelling. OB - PN: Obj Exam Physical Exam: Vital signs: Temp Pulse Resp BP Pulse Ox O2 Del Method 98.8 F 72 17 123/80 98 Room Air 06/12/24 14:52 06/12/24 14:52 06/12/24 14:52 06/12/24 14:52 06/12/24 14:52 06/12/24 14:52 Constitutional: Constitutional: no acute distress Routine Respiratory Exam: Respiratory: Present CTA bilaterally; Absent resp iratory distress Routine Cardiovascular Exam: Cardiovascular: Present RRR; Absent murmur Routine Abdominal Exam: Abdominal: Present soft; Absent tenderness Fundus: Present firm Routine Extremities Exam: Extremities: Present normal inspection and pedal edema; Absent calf tenderness Routine Neurological Exam: Neurological: Present alert and oriented X3 Routine Psychiatric Exam: Psychiatric: Present normal affect Wound Management: Method: suture Examination: Present clean, dry and intact; Absent erythematous Comments: Pfannenstiel incision Urinary Catheter Management: Urethral: Cath placed during this visit: no OB - PN: Obj Data Labs Labs: Laboratory Results - last 24 hr 06/11/24 06/11/24 16:57 23:30 WBC 16.01 H 13.74 H RBC 3.31 L 3.11 L Hgb 9.5 L 8.8 L Hct 28.3 L 27.0 L MCV 86 87 MCH 29 28 MCHC 34 33 Plt Count 140 148 BUN 10 9 Creatinine 0.7 0.6 Estimated Creat Clear 98.09 114.44 Estimated GFR 120 125 Magnesium 5.8 H* 5.6 H* AST 27 27 ALT 12 14 OB - PN: A/P Delivery Assessment and Plan (1) Pre-eclampsia, severe: Status: Acute (2) Status post primary low transverse section: Problem details: Boy at 23:31, Gorge, Dieter#10oz. Apgars 7/9. Status: Acute Plan Recommend continue observation of blood pressures overnight tonight. Anticipate discharge tomorrow. We discussed activity restrictions and follow-up. Her questions were answered. Plan day: 2 Plan: routine care
[2024-06-13 03:34] VITALS: BP 122/80; PULSE 74; RESP 16; TEMP 36.7; O2SAT 98
[2024-06-13] MEDS: ACETAMINOPHEN 500 MG TABLET 1000 MG PO ×2 (03:36→09:07)
[2024-06-13] MEDS: IBUPROFEN 600 MG TABLET PO ×2 (03:36→09:07)
[2024-06-13 07:50] VITALS: BP 130/86; PULSE 90; RESP 17; TEMP 36.5; O2SAT 97
--- NOTE | 2024-06-13 08:26 | P.DS_ITS ---
DS: Providers Provider Date Seen: 06/13/24 Date of admission: 06/08/24 17:04 Primary care physician: Sona Yoon MD Admitting Clinician: Sona Yoon MD Attending Physician on discharge: Volodymyr Tamez MD Date of Discharge: 06/13/24 DS: Diagnosis Discharge Diagnosis (1) Status post primary low transverse section: Status: Acute Problem details: Boy at 23:31, Dieter [place]#10oz. Apgars 7/9. (2) Pre-eclampsia, severe: Status: Acute (3) Chronic hypertension affecting : Status: Acute Problem details: on labetalol 200 mg bid. Preeclampsia labs reassuring. Exam Narrative: Exam Narrative: VITAL SIGNS: As noted above. GENERAL APPEARANCE: Alert, cooperative female in no acute distress. MOOD & AFFECT: Normal. HEART: Regular rate and rhythm without murmurs. LUNGS: Lungs are clear to auscultation bilaterally. No crackles, wheezes, or rhonchi. ABDOMEN: Soft, appropriately tender, fundus well contracted at umbilicus. Incision healing well, no surrounding erythema, abnormal induration or discharge. : Normal pp lochia. EXTREMITIES: Bilateral pitting edema +1 up to ankles. Slightly more evident on the right side. Negative Stefanie's sign bilaterally. Well perfused. Nontender. NEURO: Intact. Const: Vital Signs, click to edit/add: Vital Signs - 24 hr 06/12/24 11:46 06/12/24 14:52 06/12/24 18:41 Temperature 98.3 F 98.8 F 99.0 F Pulse Rate [Pulse Oximeter] 75 72 75 Respiratory Rate 16 17 16 Blood Pressure [Ri ght Arm] 115/75 123/80 137/87 Pulse Oximetry 98 98 100 Oxygen Delivery Me thod Room Air Room Air Room Air 06/12/24 21:01 06/12/24 23:15 06/13/24 03:34 Temperature 98.0 F 98.7 F 98.0 F Pulse Rate [Pulse Oximeter] 79 76 74 Respiratory Rate 16 16 16 Blood Pressure [Ri ght Arm] 131/84 132/78 122/80 Pulse Oximetry 99 98 Oxygen Delivery Me thod Room Air Room Air 06/13/24 07:50 Temperature 97.7 F Pulse Rate [Pulse Oximeter] 90 Respiratory Rate 17 Blood Pressure [Ri ght Arm] 130/86 Pulse Oximetry 97 Oxygen Delivery Me thod Room Air OB - DS: Summary Hospital Course Hospital Course: The patient is a 29 year old G 2 P 1011 at 38 1/7 weeks gestation that was admitted to the Center on 06/08/24 for IOL due to CHTN, was also diagnosed with superimposed preeclampsia with severe features, by blood pressures criteria. She had an uncomplicated delivery due to arrest of descent. She delivered a viable male infant. She is breast feeding. the patient has done well. Patient completed 24 hours of magnesium sulfate infusion for seizure prophylaxis. No evidence of MACHINE WIPER irritability symptoms, no headaches, vision changes or pain in her upper abdomen. Prior to delivery she was on labetalol 200 mg BID and during admission Nifedipine ER 30mg daily added. Vital signs have remained normal. Has had adequate urine output. Voiding w/o difficulty and passing gas. Peripartum Data Infant delivery method: Primary C/S; Labored Procedures: Procedures Operation Date: 06/10/24 23:00 Actual Procedure Side Surgeon p Primary Low Transverse Section Cesia Vázquez MD complications: other (CHTN with superimposed preeclampsia with severe features) Infant Gender: Male Discharge Plan: Home Status at Discharge Functional status at discharge: independent ambulation Overall status at discharge: patient is progressing back to baseline Time Spent with Patient Time attestation: Total time spent providing and/or coordinating discharge services: Time spent: Less than 30 minutes Discharge Plan Discharge Disposition: Home, Self-Care Date of Admission: 06/08/24 17:04 Attending Provider on Discharge: Doris Tamez Primary Care Provider: Sona Yoon Condition: Stable Anticipated Discharge Date/Time: 06/13/24 12:00 Discharge Medications: New acetaminophen 500 mg Tablet 1,000 mg PO Q6H PRN (Reason: Pain) Qty: 30 0RF docusate sodium 100 mg Capsule 100 mg PO BID PRN (Reason: constipation) Qty: 30 0RF nifedipine 30 mg Tablet Extended Release 24hr 30 mg PO DAILY Qty: 30 0RF ibuprofen 600 mg Tablet 600 mg PO Q6H PRN (Reason: Pain) Qty: 30 0RF labetalol 100 mg Tablet 200 mg PO BID Qty: 60 0RF oxycodone 5 mg Tablet 5 - 10 mg PO Q4H PRN (Reason: Pain) Qty: 10 0RF Continued labetalol 100 mg tablet 200 mg PO BID [id number] 6-dha 27 mg iron-1 mg -205 mg capsule 2 cap PO DAILY Unisom (doxylamine) 25 mg tablet 25 mg PO QHS PRN Discontinued aspirin 81 mg tablet,delayed release (DR/EC) 81 mg PO DAILY Discharge Orders: Discharge Order (Routine); Ordered 06/13/24 Ordered By: Doris Tamez Patient Education: OB /Breast Feeding Additional Instructions: Measure blood pressures at home twice a day. Notify clinic if there are blood pressures persistently more than 150 systolics, 100s diastolics or if any symptoms such as headaches that do not go away with pain medication, visual changes such as dark spots in vision, pain in the upper abdomen-that moves towards the upper right side. Notify clinic if there are blood pressures persistently less than 100-110 systolics, 50-60s diastolics or if there is any associated symptoms such as lightheadedness, dizziness, shortness of breath, heart palpitations. Follow-up in clinic in 3-5 days after discharge for blood pressure check, review of antihypertensive medication regimen. With [facility] providers. Follow-up in clinic in 2 weeks for incision check and follow-up. With [facility]. Follow-up in 6 weeks in clinic for regular visit. With [facility] providers. Activity Level: Activity as Tolerated Activity Detail: No lifting more than 15- 20 pounds for 6 weeks, nothing vaginally for 6 weeks. Discharge Diet: Regular Follow Up Appointments: Sona Yoon MD [Primary Care Provider] - Forms: [employer] Info Instructions
[2024-06-13] MEDS: NIFEdipine 30 MG TAB.ER.24 PO (09:07)
[2024-06-13] MEDS: LABETALOL HCL 100 MG TABLET 200 MG PO (09:07)
== END 2024-06-13 11:00 | disposition home or self-care (01) | DRG 787 ==
PROVIDERS: Admitting Provider Family Medicine; PCP Family Medicine; Visit Provider Obstetrics & Gynecology
PROC: (CPT 59514; principal; 2024-06-10 22:45)
DX: O40.3XX0 Polyhydramnios, third trimester, not applicable or unspecified (principal); O10.92 Unspecified pre-existing hypertension complicating childbirth; O14.14 Severe pre-eclampsia complicating childbirth; O36.63X0 Maternal care for excessive fetal growth, third trimester, not applicable or unspecified; G89.18 Other acute postprocedural pain; I95.89 Other hypotension; O63.1 Prolonged second stage (of labor); O32.4XX0 Maternal care for high head at term, not applicable or unspecified; Z3A.37 37 weeks gestation of pregnancy; Z37.0 Single live birth
CPT/HCPCS: 01967; 01968; 36415; 51701; 59200; 64488; 76815; 76942; 82565; 82570; 83735; 84156; 84450; 84460; 84520; 85018; 85027; 86592; 86850; 86900; 86901; 88307; 99140; A9270; C1726; C9290; J0456; J0665; J0690; J1100; J1885; J2210; J2274; J2371; J2405; J2590; J2795; J3010; J3475; J7050; J7120

== ENCOUNTER 2024-06-16 13:40 | Outpatient (CLI) | payer OTHER, SELFPAY ==
--- NOTE | 2024-06-16 13:42 | W.PM.LAC.MC ---
Consult Note - Mom Date of Visit Date of visit: 06/16/24 Reason for consultation: Assistance Needed Visit Code: Visit Patient's Information Phone number: [phone] : 2 Para: 1 Allergies No Known Drug Allergies Allergy (Verified 06/16/24 10:54) Work Plans: Return to work beginning of August Delivery Information Delivery type: Primary C/S; Labored Gestational Age: 38w 2d Gestational Weight For Age: AGA Weight: 3.459 kg Discharge Weight: 3.185 kg Percentage weight loss: 7.91 Baby's Information Baby's Age at Visit: 6 days Baby's Provider or Clinic: Dr. Car Huston Jaundice: Yes (mild, bilirubin checked yesterday, no need for repeat) Past Experience Past Experience: No Current Frequency of Day Feedings: every 2-3 hours Frequency of Night Feedings: every 2-3 hours Both Breasts: Yes Suck: strong at first, then gets sleepy Latch: pretty wide and deep, sometimes needs relatching Length of Time: 10 min ea side Goals: 1 year Pumping Pumping: Yes Quantity Pumped: 1.5-2 oz total Supplementing EBM Supplement: Yes Formula Supplement: Yes Baby Elimination Number of Wet Diapers a Day: 5-6 hard to tell Number of BM a Day: 3 since yesterday, more yellow today than yesterday Breast/Nipple Condition Breast Information: Breasts are symmetrical with rounded lower quadrants, intramammary distance is less than 1.5 inches. No erythema. Nipples are supple, everted prior to feeding. Breast Shape: Round Engorgement: No Maternal Nipple Condition - Left: Common Nipple Maternal Nipple Condition - Right: Common Nipple Sore Nipples: Yes Interventions for Sore Nipples: Lansinoh/Nipple Cream and Other (Silverettes) Baby Assessment Skin: Normal Tongue/frenulum: Normal/elastic Palate: Average Lips: Relaxed and Symmetrical Jaw Alignment: Symmetrical Mucosa: [place], moist Onsite Observation Pre-Feed weight: 3.164 kg Post-Feed weight: 3.194 kg Milk Transferred (mL): 30 Position: Cross cradle Attachment/latch-on achieved: Easily Suck pattern: Suck burst and normal rest and Extended rest phase, lots of stimulation to keep baby nursing (after about 5 min on ea side) Swallow: Audible, consistent Behavior following feed: Relaxed, sleepy Pre-Nursing Left Nipple: Within Normal Limits Pre-Nursing Right Nipple: Within Normal Limits Post-Nursing Left Nipple: Within Normal Limits Post-Nursing Right Nipple: Within Normal Limits Assessments/Interventions Assessments/Interventions: observation Babe latches easily to mom's right breast; nurses strong with audible swallows for about 10 minutes, then comes on and off Babe then latches to mom's left breast; and again nurses well for about 10 minutes then comes on and off Babe had transferred 22 ml at this time Mom relatched to her right breast, used breast compression and babe nursed more strongly again Mom then offered her left breast, babe went on for a few minutes and then came off and was content Jayesh had transferred another 8ml for 30 ml total for this feeding When he takes a bottle feed - he typically takes 30ml/feed, sometimes 1.5 oz. Mom measured for flange size as pumping is uncomfortable R nipple 17mm, so flange size 20-21mm L nipple 17/18mm, so flange size 20-21 mm Mom has a Spectra pump; will look at ordering new flange for comfort as well as milk production. Education provided: Early feeding cues to maximize timing of latching, Asymmetric latch technique for wide/deep latch to increase milk, Supply/demand nature of milk supply and Pumping for milk management Feeding Plan: 1. Breastfeed for 10 on each breast, listening for active swallowing. Then try switch nursing and offer ea breast again for another 5 minutes (takes advantage of multiple let downs in a single feed) 2. Pump both breasts for: 10-15 minutes after every other feeding to help build supply for next week; a full 20 minutes if pumping instead of . 3. Feed baby 30-60 ml of pumped milk and/or formula every 2-3 hours based on feeding cues if not 4. Try skin to skin to increase milk production 5. Discused flange size, hands on pumping, pump settings, and cycle pumping to help with milk removal when just pumping. Call placed to Dr. Sona Yoon at [facility]; information from visit shared. Dr. Yoon will call family to discuss f/u plan for feeding/weight check either with her or here for help Follow-Up Suggested follow up: Appointment as needed Time Spent Time spent with patient (min): 70 (time spent reviewing EMR and face to face with Matt, and baby) Meds Home Medications and Allergies Home Medications ?Medication ?Instructions ?Recorded ?Confirmed ?Type vitamins no.148-iron 27 2 cap PO DAILY 06/08/24 06/16/24 History mg-folate 1 mg-dha 205 mg capsule Allergies Allergy/AdvReac Type Severity Reaction Status Date / Time No Known Drug Allergies Allergy Verified 06/16/24 10:54
== END 2024-06-16 13:41 | disposition home or self-care (01) ==
LOC: OB LAC 13:40
PROVIDERS: PCP Family Medicine; Visit Provider Obstetrics & Gynecology
DX: Z39.1 Encounter for care and examination of lactating mother (principal)
CPT/HCPCS: G0463

== ENCOUNTER 2024-10-26 09:02 | Emergency (ER) | payer OTHER, SELFPAY ==
[2024-10-26] VITALS (7 sets, daily range): BP systolic 134–168; BP diastolic 102–117; PULSE 76–86; RESP 12–16; TEMP 36.4; O2SAT 95–99; BMI 32.6
[2024-10-26 10:40] LABS: Basophils Absolute Auto 0.03 K/uL (0.00-0.30); Basophils Percent Auto 0.6 % (0.0-3.0); Eosinophils Absolute Auto 0.08 K/uL (0.00-0.50); Eosinophils Percent Auto 1.7 % (0.0-7.0); Hematocrit 43.5 % (33.0-51.0); Immature Granulocytes Abs Auto 0.01 K/uL (0.00-0.30); Immature Granulocytes Pct Auto 0.2 %; Lymphocytes Absolute Auto 1.12 K/uL (0.90-2.90); Lymphocytes Percent Auto 24.1 % (20-44); Mean Corpuscular HGB Conc 32 gm/dL (32-36); Mean Corpuscular Hemoglobin 27 pg (26-34); Mean Corpuscular Volume 84 fL (80-100); Monocytes Percent Auto 1.9 % (0.0-11.0); Neutrophils Absolute Auto 3.32 K/uL (1.7-7.0); Neutrophils Percent Auto 71.5 % (42.0-72.0); Platelet Count* 249 K/uL (140-440); RDW Coefficient of Variation % 12.8 % (11.5-15.5); Red Blood Count 5.16 m/uL (4.00-5.20); Slide Review Reflex No; White Blood Count* 4.65 K/uL (4.50-11.00)
[2024-10-26 10:51] LABS: Albumin* 4.7 g/dL (3.3-5.0)
[2024-10-26 10:52] LABS: Chloride* 103 mmol/L (96-114); Potassium* 4.1 mmol/L (3.6-5.1); Sodium* 139 mmol/L (135-149)
--- NOTE | 2024-10-26 10:52 | ED.GENADULT ---
HPI - General Adult General Date Seen: 10/26/24 Chief complaint: Back Injury/Pain Stated complaint: chest pain/shoulder&back too Time Seen by Provider: 10/26/24 09:45 History of Present Illness HPI narrative: Patient is a 29-year-old woman here with her mom for evaluation of some left-sided chest and back pain. She says initially last night she was walking up and down the stairs and developed some sudden pain kind of up by her collarbone at the time. She says it has migrated and now it is more by her shoulder blade and it radiates into the back of her left arm. She does not have significant pleuritic pain. She says she felt kind of short of breath when she was going up the stairs but she had a baby 4 months ago and she says she is still pretty out of shape so she did not think a whole lot of that. She is not short of breath today. She has not had fevers or cough. She has no history of DVT or PE. She has no lower extremity swelling or pain. She has not had any abdominal pain, nausea, vomiting, fevers, headache, or other complaints. She did have gestational hypertension, had been on labetalol. She discontinued it a few days ago although she acknowledges that she was not told by anyone to discontinue it. Related Data Home Medications ?Medication ?Instructions ?Recorded ?Confirmed vitamins no.148-iron 27 2 cap PO DAILY 06/08/24 10/26/24 mg-folate 1 mg-dha 205 mg capsule Previous Rx's ?Medication ?Instructions ?Recorded acetaminophen 500 mg tablet 1,000 mg (2 x 500 mg) PO Q6H PRN 06/13/24 Pain #30 tabs ibuprofen 600 mg tablet 600 mg PO Q6H PRN Pain #30 tabs 06/13/24 Allergies Allergy/AdvReac Type Severity Reaction Status Date / Time No Known Drug Allergies Allergy Verified 10/26/24 09:11 Review of Systems Status of ROS: Reports: 10 or more systems reviewed and unremarkable except as noted in History and below [facility] Surgical History Status post primary low transverse section (06/10/24) ?Z98.891 - History of uterine scar from previous surgery (ICD-10) Social History What is your current living situation?: I presently have a place to live Problems where you live: no known problems In the past 12 months, utilities in danger of being shut off: no In past 12 months, lack of transportation kept you from medical appts, meetings, work, or getting things needed for daily living: no In the past 12 mos, have been you worried that your food would run out before you had money to buy more?: never true In the past 12 mos, the food you bought just didn't last and you didn't have money to buy more?: never true Smoking Status: Never smoker How often do you have a drink containing alcohol: never AUDIT-C Alcohol total score: 0 Non-prescribed substance use: denies use How often does anyone, including family, friends and others, physically hurt you: never How often does anyone, including family, friends and others, insult or talk down to you: never How often does anyone, including family, friends and others, threaten you with harm: never How often does anyone, including family, friends and others, scream or curse at you: never Exam Narrative: Exam Narrative: Vital signs reviewed In general, alert, nontoxic young woman. Breathing easily. Head: Normocephalic, atraumatic. Eyes: Sclera clear. Pupils equal and reactive. ENT: Mucous membranes moist. Neck: Supple without adenopathy. Heart: Regular rate and rhythm without murmur. Lungs: Clear. No increased work of breathing, crackles or wheezes. Abdomen: Soft, nontender to palpation. Back: She has some palpable muscle spasm along the scapula on the left. Extremities: Well perfused, pulses intact. No significant edema. Neurologic: Alert, conversant. Speech fluent, face symmetric. Moves all extremities equally. Skin: Warm, dry well perfused. Affect: Normal. Const: Vital Signs, click to edit/add: Vital Signs - 24 hr 10/26/24 09:10 10/26/24 09:31 10/26/24 10:02 Temperature 97.5 F L Pulse Rate 83 86 Pulse Rate [Pulse Oximeter] 76 Respiratory Rate 16 16 14 Blood Pressure 140/102 H 168/117 H Blood Pressure [Ri ght Upper Arm] 153/103 H Pulse Oximetry 98 95 99 Oxygen Delivery Me thod Room Air 10/26/24 11:02 10/26/24 11:32 10/26/24 12:02 Temperature Pulse Rate 79 78 78 Pulse Rate [Pulse Oximeter] Respiratory Rate 14 12 14 Blood Pressure 134/102 H 148/108 H 151/115 H Blood Pressure [Ri ght Upper Arm] Pulse Oximetry 98 98 99 Oxygen Delivery Me thod 10/26/24 12:36 Temperature 97.5 F L Pulse Rate Pulse Rate [Pulse Oximeter] Respiratory Rate Blood Pressure Blood Pressure [Ri ght Upper Arm] Pulse Oximetry Oxygen Delivery Me thod Course Course ED Course: Patient presents with some migratory chest and back pain. She is generally healthy, 4 months . She is hypertensive here, but she just discontinued her beta-jagjit. No other signs or symptoms to suggest preeclampsia. Other diagnostic considerations would be acute coronary syndrome, pericarditis, myocarditis, PE, pneumonia, pneumothorax, biliary colic, among others. She declines need for anything for pain. She had an EKG which by my review showed a sinus rhythm, ventricular rate of 59. She does not have any acute ST segment changes. No S1 Q 3 T3. A troponin was 0. D-dimer was normal at 0.27. CBC was normal, white blood cell count of 4.6 hemoglobin of 14. Metabolic panel unremarkable. LFTs were normal, lipase was 67. She had a chest x-ray as well which by my review showed no pneumothorax or infiltrate. Radiology read this as normal. I have discussed all this with her. At this time, I would suspect that symptoms are likely musculoskeletal. Reviewed that I do not have any findings on lab or x-ray to suggest an alternate more concerning diagnosis. She does not have any abdominal tenderness or pain, with normal LFTs, white blood cell count, etcetera I do not think she needs additional abdominal imaging at this time. I recommended a trial of ibuprofen 3 times daily for couple of days. I have asked her to follow up with primary care if not improving over the next few days to week. Return to the ER at any time if she is having more severe pain or new symptoms such as fever, shortness of breath, vomiting etcetera. She declines any other medications for symptom control as she is nursing. Vital Signs Vital signs: Initial Vital Signs Temperature 97.5 F L 10/26/24 09:10 Temperature Source Temporal Artery Scan 10/26/24 09:10 Pulse Rate 76 10/26/24 09:10 Pulse Rhythm Regular 10/26/24 09:10 Respiratory Rate 16 10/26/24 09:10 Blood Pressure 153/103 H 10/26/24 09:10 Blood Pressure Mean 119 H 10/26/24 09:10 Blood Pressure Position Supine 10/26/24 09:10 Pulse Oximetry 98 10/26/24 09:10 Oxygen Delivery Method Room Air 10/26/24 09:10 Vital Signs Temperature 97.5 F L 10/26/24 09:10 Pulse Rate 76 10/26/24 09:10 Respiratory Rate 16 10/26/24 09:10 Blood Pressure 153/103 H 10/26/24 09:10 Pulse Oximetry 98 10/26/24 09:10 Oxygen Delivery Method Room Air 10/26/24 09:10 Temperature 97.5 F L 10/26/24 12:36 Pulse Rate 78 10/26/24 12:02 Respiratory Rate 14 10/26/24 12:02 Blood Pressure 151/115 H 10/26/24 12:02 Pulse Oximetry 99 10/26/24 12:02 Oxygen Delivery Method Room Air 10/26/24 09:10 Medical Decision Making Lab Data Labs: Lab Results 10/26/24 Range/Units 10:32 WBC 4.65 (4.50-11.00) K/uL RBC 5.16 (4.00-5.20) m/uL Hgb 14.0 (12.0-16.0) gm/dL Hct 43.5 (33.0-51.0) % MCV 84 (80-100) fL MCH 27 (26-34) pg MCHC 32 (32-36) gm/dL RDW Coeff of Yonas 12.8 (11.5-15.5) % Plt Count 249 (140-440) K/uL Neut % (Auto) 71.5 (42.0-72.0) % Lymph % (Auto) 24.1 (20-44) % Boone % (Auto) 1.9 (0.0-11.0) % Eos % (Auto) 1.7 (0.0-7.0) % Baso % (Auto) 0.6 (0.0-3.0) % Neut # (Auto) 3.32 (1.7-7.0) K/uL Lymph # (Auto) 1.12 (0.90-2.90) K/uL Boone # (Auto) 0.10 (0.00-0.90) K/UL Eos # (Auto) 0.08 (0.00-0.50) K/uL Baso # (Auto) 0.03 (0.00-0.30) K/uL Abs Immat Gran (auto) 0.01 (0.00-0.30) K/uL Imm/Tot Granulo (auto) 0.2 % D-Dimer Quant (PE/DVT) < 0.27 (0.00-0.50) ug/ml Sodium 139 (135-149) mmol/L Potassium 4.1 (3.6-5.1) mmol/L Chloride 103 (96-114) mmol/L Carbon Dioxide 26 (20-32) mmol/L Anion Gap 10 (7-15) mEq/L BUN 15 (5-24) mg/dL Creatinine 0.8 (0.5-1.5) mg/dL Estimated Creat Clear 89.60 Estimated GFR 102 ml/min Glucose 84 (60-115) mg/dL Calcium 9.5 (8.4-10.6) mg/dL Total Bilirubin 0.5 (0.1-1.5) mg/dL Direct Bilirubin 0.3 (0.0-0.5) mg/dL AST 26 (12-35) U/L ALT 29 (4-35) U/L Alkaline Phosphatase 118 (40-150) U/L Total Protein 7.9 (6.0-8.3) g/dL Albumin 4.7 (3.3-5.0) g/dL Lipase 67 (23-300) U/L POC Troponin I 0.00 L (0.01-0.04) ng/ml Imaging Data Chest x-ray: Attestation: I have reviewed the pertinent imaging results. Radiologist's impression: [address] [address] Diagnostic Imaging Report Patient: Matt Ragland MR#: [id number] : 1995 Acct:[id number] Loc: ED Service Date: 10/26/[address]: Ordering Physician: Jessenia Herrera M.D. Date of Service: 10/26/24 Procedure(s): XR chest 2V Accession Number(s): [id number] cc: Jessenia Herrera M.D.; Sona Yoon M.D.~ For Patients: As a result of the Cures Act, medical imaging exams and procedure reports are released immediately into your electronic medical record. You may view this report before your referring provider. If you have questions, please contact your health care provider. INDICATION: Chest pain TECHNIQUE: Chest 2 views. COMPARISON: None. FINDINGS: Cardiovascular and mediastinum: Heart size is normal. Unremarkable mediastinum. Lungs and pleural spaces: Lungs are clear. No sign of pleural effusion. No pneumothorax. Bones and soft tissues: No significant findings. IMPRESSION: No acute findings. Dictated by Yari Heaton MD @ 10/26/2024 10:40:48 AM Discharge Plan Discharge Prescriptions: No Action [id number] 6-dha 27 mg iron-1 mg -205 mg capsule 2 cap PO DAILY acetaminophen 500 mg Tablet 1,000 mg PO Q6H PRN (Reason: Pain) Qty: 30 0RF ibuprofen 600 mg Tablet 600 mg PO Q6H PRN (Reason: Pain) Qty: 30 0RF Follow Up/Referrals: Sona Yoon MD [Primary Care Provider] -
[2024-10-26 10:54] LABS: Alkaline Phosphatase* 118 U/L (40-150); Anion Gap 10 mEq/L (7-15); Aspartate Amino Transferase* 26 U/L (12-35); Bilirubin Direct* 0.3 mg/dL (0.0-0.5); Bilirubin Total* 0.5 mg/dL (0.1-1.5); Carbon Dioxide* 26 mmol/L (20-32); Creatinine* 0.8 mg/dL (0.5-1.5); Estimated Glomerular Filt Rate 102 ml/min; Total Protein* 7.9 g/dL (6.0-8.3)
[2024-10-26 10:55] LABS: Alanine Aminotransferase* 29 U/L (4-35); Blood Urea Nitrogen* 15 mg/dL (5-24); Glucose* 84 mg/dL (60-115); Lipase* 67 U/L (23-300)
[2024-10-26 10:56] LABS: Calcium* 9.5 mg/dL (8.4-10.6)
[2024-10-26 11:12] LABS: D Dimer Quantitative* < 0.27 ug/ml (0.00-0.50)
--- OUTSIDE RECORDS SUMMARY | 2024-10-26 14:01 | XMS_ITS | Clinical Summary ---
Author Organization [employer] [facility] Address [place], [place] [address] Care Team Providers Care Paver Layer Name Role Phone Sona Yoon MD Primary Care Provider Sona Yoon MD Unavailable [phone] Allergies No known active allergies Medications no115/iron/folic acid ( 19 ORAL) Take by mouth. Activ e Magnesium 200 mg tab Take 200 mg by mouth once daily. Active Breast Pump PurchaseIndicati ons:Encounter for supervision of normal first in second trimester Electric breast pump for home use. Gestational age at delivery: TBD weeks. Reason for need: separation from . Length of need: 99 months (lifetime use) 1 Each 4 Active blood-glucose meterIndications : macrosomia during in third trimester, single or unspecified fetus,Polyhydram nios in third trimester complication, single or unspecified fetus Dispense meter covered by pts insurance. Check three times daily. 1 Each 4 Active lancetsIndicatio ns: macrosomia during in third trimester, single or unspecified fetus,Polyhydram nios in third trimester complication, single or unspecified fetus Test 3 times per day. 50 Each 4 Active blood sugar diagnostic (Blood Glucose Test) stripIndications : macrosomia during in third trimester, single or unspecified fetus,Polyhydram nios in third trimester complication, single or unspecified fetus Test 3 times per day. 500 Each 4 Active labetaloL (TRANDATE) 100 mg tabletIndication s:HTN (hypertension) Take 1 Tablet (100 mg) by mouth two times daily. 180 Tablet 3 4 Active NIFEdipine (PROCARDIA XL) 30 mg extended-release tabletIndication s:HTN (hypertension) Take 1 Tablet (30 mg) by mouth once daily before a meal. 90 Tablet 3 4 Active Active Problems Problem Noted Date Diagnosed Date macrosomia in in third trimester 05/25/2024 Polyhydramnios in third trimester 05/25/2024 [facility] Supervision of high-risk 4 Overview (05/22/2024): Matt Ragland : 1995 REFERRING PROVIDER/CLINIC LOCATION/FAX #: Sona Yoon MD - Betzaida Iraan, Primary MD approves scheduling of recommended ultrasounds/testing: Yes [facility] ULTRASOUND/TESTING PATIENT Support person name: ULTRASOUND TYPE: level II REASON FOR VISIT: New polyhydramnios, likely macrosomia, in setting of chronic hypertension NEXT VISIT ALERTS: Final ALICE by Early Ultrasound LMP Date: Patient's last menstrual period was 09/20/2023 (approximate). ALICE: 06/26/24 Early US: Date: 11/18/23 GA: 8w6d ALICE: 06/23/24 PrePregnancy Weight: 174 Height: 5'3.4 BMI: 30.3 PLANS & FUTURE APPOINTMENTS: ULTRASOUND/GROWTH PLAN: - Through: - Growth: Next TESTING PLAN: - Testing: Through DELIVERY PLAN: - Scheduled delivery: - Preferred delivery location: PRIMARY DIAGNOSIS: 29 y.o. Estimated Date of Delivery: 06/23/24 polyhydramnios macrosomia MATERNAL BMI >30 Hx CHTN PREVIOUS ULTRASOUNDS: 05/11/24 EFW 2806 grams, percentile: 94. SDP: 11.9 cm (PCP) 02/10/24 estimated weight is 440 grams which lies at the 85th %. ECHO: SPECIALISTS/CONSULTS: Include: Specialty MD Clinic Name Phone# [place] and ADDED TO PATIENT CARE TEAM Yes GENETICS: NIPS: Low risk CARE COORDINATION: PERTINENT LABS: Blood type: O Rh Positive Antibody screen: Negative PERTINENT MEDS: bASA PROCEDURES: IF FGR <10% or EFW <2000 grams: Add FGRPCOM PLAN OF CARE: Original and updated POC Chronic hypertension affecting 024 01/20/2024 Overview (06/02/2024): Estimated Date of Delivery: 06/23/24 based on US Patient's last menstrual period was 09/20/2023 (approximate). Chronic HTN- on aspirin Macrosomia Polyhydramnios - KIARA 25.6 cm on 06/02 U/S 05/11/24 Sonographic gestational age 35 weeks 4 days and sonographic due date 06/11/2024. Sonographic age 12 days ahead of the clinical age. Estimated weight 94th percentile. Abdominal circumference greater than 98th percentile. Amniotic fluid single deepest pocket 11.9 cm. KIARA 24.5 cm. GBS: Vaginal/Rectal OB Strep B PCR Date Value Ref Range Status 05/18/2024 Negative Final 28wk labs: GLUCOSE,GESTATIONAL Date Value Ref Range Status 03/30/2024 122 70 - 139 mg/dL Final HEMOGLOBIN Date Value Ref Range Status 03/30/2024 11.9 (L) 12.0 - 16.0 g/dL Final TREPONEMA PALLIDUM Date Value Ref Range Status 03/30/2024 Non-Reactive Non-Reactive Final Last Tdap: 03/30/24 Last Flu vaccine: 07/09/23 OB Labs: ABORH Date Value Ref Range Status 12/02/2023 O Rh Positive Final ANTIBODY SCREEN Date Value Ref Range Status 12/02/2023 Negative Negative Final TREPONEMA PALLIDUM Date Value Ref Range Status 12/02/2023 Non-Reactive Non-Reactive Final RUBELLA IGG ANTIBODY Date Value Ref Range Status 12/02/2023 1.03 >=1.00 Index Final INTERPRETATION Date Value Ref Range Status 12/02/2023 Positive Final Comment: Presence of detectable IgG antibodies. A positive result generally indicates exposure to the virus or previous vaccination, but is not an indication of active infection or stage of disease. 12/02/2023 Positive Final Comment: Presence of detectable IgG antibodies. A positive result generally indicates exposure to the virus or previous vaccination, but is not an indication of active infection or stage of disease. HBSAG Date Value Ref Range Status 12/02/2023 Nonreactive Nonreactive Final HEPATITIS C ANTIBODY Date Value Ref Range Status 12/02/2023 Non-Reactive Non-Reactive Final Comment: Please note, per www.CDC.gov: If a patient is known to be at high risk of HCV infection, or is symptomatic, and the physician's suspicion of HCV infection is high, HCV RNA testing is often employed and is of diagnostic value, even after an initial negative anti-HCV test result. HIV-1/HIV-2 SCREEN Date Value Ref Range Status 12/02/2023 Non-Reactive Non-Reactive Final Comment: HIV-1 p24 and HIV-1/HIV-2 Ab Not Detected. VARICELLA ZOSTER IGG ANTIBODY Date Value Ref Range Status 12/02/2023 397.1 >=165.0 INDEX Final HEMOGLOBIN Date Value Ref Range Status 12/02/2023 13.4 12.0 - 16.0 g/dL Final PLATELET COUNT Date Value Ref Range Status 12/02/2023 230 140 - 440 thou/cu mm Final CHLAMYDIA PROBE Date Value Ref Range Status 12/02/2023 Negative Final N GONORRHOEAE PROBE Date Value Ref Range Status 12/02/2023 Negative Final No Known Allergies OB History Para Term AB Living 2 0 0 0 0 0 SAB IAB Ectopic Multiple Live Births 0 0 0 0 0 # Outcome Date GA Lbr Suresh/2nd Weight Sex Delivery Anes PTL Lv 2 Current 1 Past Medical History: . Date No Significant Past Medical History Pap smear for cervical cancer screening Plan: PAP due 12/2024 Scoliosis Past Surgical History: . Laterality Date [place] DENTAL SURGERY PROCEDURE WISDOM TEETH EXTRACTION Problems (from 12/02/23 to present) No problems associated with this episode. Janeth Bowling RN ....01/20/2024 4:41 PM Pap smear for cervical cancer screening Overview (01/23/2022): Plan: PAP due 12/2024 Resolved Problems Problem Noted Date Diagnosed Date Resolved Date 07/16/2023 10/21/2023 Overview (10/21/2023): Estimated Date of Delivery: None noted. Patient's last menstrual period was 05/18/2023 (approximate). Miscarriage Jul 2023 Last Tdap- 01/14/23 Last Flu vaccine- 07/09/23 OB Labs: ABORH Date Value Ref Range Status 07/15/2023 O Rh Positive Final ANTIBODY SCREEN Date Value Ref Range Status 07/15/2023 Negative Negative Final HEMOGLOBIN Date Value Ref Range Status 07/15/2023 14.1 12.0 - 16.0 g/dL Final PLATELET COUNT Date Value Ref Range Status 07/15/2023 247 140 - 440 thou/cu mm Final TREPONEMA PALLIDUM Date Value Ref Range Status 07/15/2023 Non-Reactive Non-Reactive Final RUBELLA IGG ANTIBODY Date Value Ref Range Status 07/15/2023 1.37 >=1.00 Index Final INTERPRETATION Date Value Ref Range Status 07/15/2023 Positive Final Comment: Presence of detectable IgG antibodies. A positive result generally indicates exposure to the virus or previous vaccination, but is not an indication of active infection or stage of disease. 07/15/2023 Positive Final Comment: Presence of detectable IgG antibodies. A positive result generally indicates exposure to the virus or previous vaccination, but is not an indication of active infection or stage of disease. HBSAG Date Value Ref Range Status 07/15/2023 Nonreactive Nonreactive Final HEPATITIS C ANTIBODY Date Value Ref Range Status 07/15/2023 Non-Reactive Non-Reactive Final Comment: Please note, per www.CDC.gov: If a patient is known to be at high risk of HCV infection, or is symptomatic, and the physician's suspicion of HCV infection is high, HCV RNA testing is often employed and is of diagnostic value, even after an initial negative anti-HCV test result. HIV-1/HIV-2 SCREEN Date Value Ref Range Status 07/15/2023 Non-Reactive Non-Reactive Final Comment: HIV-1 p24 and HIV-1/HIV-2 Ab Not Detected. VARICELLA ZOSTER IGG ANTIBODY Date Value Ref Range Status 07/15/2023 482.8 >=165.0 INDEX Final CHLAMYDIA PROBE Date Value Ref Range Status 07/15/2023 Negative Final N GONORRHOEAE PROBE Date Value Ref Range Status 07/15/2023 Negative Final No Known Allergies OB History Para Term AB Living 1 0 0 0 0 0 SAB IAB Ectopic Multiple Live Births 0 0 0 0 0 # Outcome Date GA Lbr Suresh/2nd Weight Sex Delivery Anes PTL Lv 1 Current Past Medical History: . Date No Significant Past Medical History Pap smear for cervical cancer screening Plan: PAP due 12/2024 Scoliosis Past Surgical History: . Laterality Date [place] DENTAL SURGERY PROCEDURE WISDOM TEETH EXTRACTION Problems (from 07/15/23 to present) No problems associated with this episode. 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 Office Visit [facility]ly [facility] [address] [place] [address] Deneen Houser, MARK Occ Therapy 08/03/2024 Travel 07/27/2024 Telephone [facility] Orthoped[facility] [address] [place] [address] Deneen Houser, MARK Appointment from Last 3 Months Immunizations Name Administration Dates Next Due COVID-19 vaccine (Pfizer-Bio NTech 30mcg/0.3mL) 12YO+ BIVALENT PF, MDV 01/14/2023 COVID-19 vaccine (Pfizer-Bio NTech 30mcg/0.3mL) PF, MDV 09/19/2021 DTaP 03/01/2000 Hepatitis A (Peds) 12/30/2009,12/24/2008 Human Papilloma Virus Vaccine 12/30/2009, 009,12/24/2008 INFLUENZA, IIV3 PF (AGE >= 6 MO) 05/18/2024 Inactivated Polio Vaccine 03/01/2000 Influenza, IIV3 (Age 6-35 mos) 08/02/2012,2010 Influenza, IIV3 (Age >=3 years) 07/01/2005,07/07 Influenza, IIV4 07/09/2023, 2,09/11/2014,08/09 Influenza,LAIV3 Live Intrana aj (Flumist) 05/17/2009 MMR 03/01/2000 Meningococcal Vaccine (Menactra) 11/03/2012,1209/2005 RSV, Bivalent Vaccine Recons tituted (Abrysvo 120MCG/0.5mL) 05/18/2024 Td (Age >=7 Years) 08/13/2006 Tdap 03/30/2024,01/14/2023 Varicella Vaccine 03/15/2007 Family History Medical History Relation Name Comments BRCA 1/2 Father Hyperlipidemia Father Hypertension Father Cancer-prostate Maternal Grandfather Diabetes type II Maternal Grandfather No Known Problems Maternal Grandmother No Known Problems Mother Diabetes type II Paternal Grandfather Hypertension Paternal Grandfather No Known Problems Paternal Grandmother Multiple myeloma Paternal Uncle Anxiety disorder Sister 1 Depression Sister 1 Psoriasis Sister 1 No Known Problems Sister 2 Relation Name Status Comments Father Alive Maternal Grandfather Maternal Grandmother Alive Mother Alive Paternal Grandfather Alive Paternal Grandmother Paternal Uncle Sister 1 Alive Sister 2 Alive Social History Tobacco Use Types Packs/Day Years Used Date Smoking Tobacco: Never Smokeless Tobacco: Never Tobacco Cessation:Counseling Given: Yes Alcohol Use Standard Drinks/Week Comments Not Currently 3 (1 standard drink = 0.6 oz pur e alcohol) PHQ-2 Answer Date Recorded PHQ-2 TOTAL SCORE 0 07/20/2024 Social Connections Answer Date Recorded Do you often feel lonely or isolated from those around you? 0 01/27/2024 Financial Resource Strain Answer Date R ecorded Difficulty of Paying Living Expenses 3 01/27/2024 Difficulty of Paying Living Expenses Not on file 01/27/2024 Food Insecurity Answer Date Recorded Do you worry your food will run out before you are able to buy more? 1 01/27/2024 Transportation Needs Answer Date Record ed Does lack of transportation keep you from medica l appointments? 1 01/27/2024 Does lack of transportation keep you from work, meetings or getting things that you need? 1 01/27/2024 Housing Stability Answer Date Recorded What is your housing situation today? 1 01/27/2024 Utilities Answer Date Recorded Do you have trouble paying f or utilities (for example, heat, electricity, water, phone)? 1 01/27/2024 Comments No Sex and Gender Information Value Date Recorded Sex Assigned at Not on file Legal Sex Female 6:39 AM CDT Gender Identity Not on file Sexual Orientation Not on file Occupation Industry Job Start Date Job End Date Not on file Not on file Not on file Not on file Obstetrics History Para Term AB IAB SAB Ectopic Multiple Livin g Live Births 1 1 1 1 1 Date Outcome GA Total Labor Labor/2nd/3rd Weight Sex Type Anes PTL Janae A1 A5 Name Clin 2023 Term 38w 1d 3.46 kg (7 lb 10 oz) M [facility]-Sec t[facility] Living 7 9 Complications:Pre-eclampsia Last Filed Vital Signs Vital Sign Reading Time Taken Comments Blood Pressure 126/80 07/20/2024 10:13 AM AIR BRAKE ADJUSTER Pulse 89 07/20/2024 10:13 AM AIR BRAKE ADJUSTER Temperature 36.6 C (97.8 F) 05/15/2021 6:06 PM CDT Respiratory Rate - - Oxygen Saturation 97% 07/20/2024 10:13 AM AIR BRAKE ADJUSTER Inhaled Oxygen Concentration - - Weight 87.8 kg (193 lb 9.6 oz) 07/20/2024 10:13 AM AIR BRAKE ADJUSTER Height 161 cm (5' 3.39) 01/14/2023 11:26 AM CDT Body Mass Index 33.88 01/14/2023 11:26 AM CDT Plan of Treatment Health Maintenance Due Date Last Done Comments BMI (ht and wt on same day) for age 18+ 01/15/2024 01/14/2023, 12/31/2021 COVID-19 vaccine series ( season) 2024 01/14/2023, 09/19/2021 Pap test for age 21-65 12/31/2024 12/31/2021 Depression screening for age 12+ 07/20/2025 07/20/2024, 07/20/2024, 01/14/2023, Additional history exists Tetanus booster 03/30/2034 03/30/2024, 12/2022, 08/13/2006 HIV for age 15-65 Completed 12/02/2023, , 01/14/2023 Hepatitis C screening for age 18-79 Completed 12/02/2023, 07/15/2023, 01/14/2023 Tdap Completed 03/30/2024, 01/14/2023 Influenza for age 9-49 Completed , 07/09/2023, 09/19/2021, Additional history exists Pneumococcal series for age 6-49 Aged Out No longer eligible based on patient's age to complete this topic Procedures Procedure Name Priority Date/Time Associated Diagnosis Comments ANTI HIV 1/2 Routine 12/02/2023 8:36 AM CDT Encounter for supervision of normal first in first trimester ANTI HCV Routine 12/02/2023 8:36 AM CDT Encounter for supervision of normal first in first trimester 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 THIN PREP PAP SCREEN IMAGED Routine 12/31/2021 8:09 AM CDT Screening for cervical cancer from Last 3 Months or Most Recently Relevant to Health Maintenance Results * ANTI HCV (12/02/2023 8:36 AM CDT) HEPATITIS C ANTIBODY Non-Reacti ve Non-React jose 12/02/2023 4:12 PM CDT [facility] Comment:Please note, per www .CDC.gov: If a patient is known to be at high risk of HCV infection, or is symptomatic, and the physician's suspicion of HCV infection is high, HCV RNA testing is often employed and is of diagnostic value, even after an initial negative anti-HCV test result. Blood BLOOD SPECIMEN / Unknown Venipuncture / Unknown 12/02/2023 8:36 AM CDT 12/02/2023 8:44 AM CDT us Sona Yoon MD SEND OUTS [facility]ul t [facility] [address] [place] [address], * ANTI HIV 1/2 [64929.0] (12/02/2023 8:36 AM CDT) HIV-1/HIV-2 SCREEN Non-Reacti ve Non-Reacti ve 12/02/2023 4:57 PM CDT [facility] TR[facility] Comment:HIV-1 p24 and HIV-1/ HIV-2 Ab Not Detected. Blood BLOOD SPECIMEN / Unknown Venipuncture / Unknown 12/02/2023 8:36 AM CDT 12/02/2023 8:44 AM CDT us Sona Yoon MD SEND OUTS Final Resul t [facility] 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 ThinPrep Vial Screening, Cervical 01/15/2022 8:16 AM CDT [facility]TRAL [facility] INTERPRETATION/ RESULT NEGATIVE FOR INTRAEPITHELIAL LESION OR MALIGNANCY (NIL) (none) 01/15/2022 8:16 AM CDT [facility] [employer] [facility] ENTRAL LABORATORY IMEN ADEQUACY Satisfactory for evaluation Endocervical component present 01/15/2022 8:16 AM CDT [facility] [employer] [facility] ENTRAL LAB[facility]ORY HPV REQUEST HPV if ASCUS 01/15/2022 8:16 AM CDT [facility] [employer] [facility] ENTRAL LABORATORY Date of LMP 12/10/2021 01/15/2022 8:16 AM CDT [facility] [employer] [facility] ENTRAL [facility] Last Pap Date approximately 3 years ago 01/15/2022 8:16 AM CDT [facility] [employer] [facility] ENTRAL [facility] Last Pap Result First Pap/Unknown 8:16 AM CDT [facility] [employer] ENTRAL LABORATORY Abnormal Pap or [place] Bx in last 5 years No 01/15/2022 8:16 AM CDT [facility] [employer] ENTRAL LABORATORY Menstrual Status Regular Periods 01/15/2022 8:16 AM CDT [facility] [employer] [facility] ENTRAL LAB[facility]ORY [place] Bx Done Today No 01/15/2022 8:16 AM CDT [facility] Additional Information None given 01/15/2022 8:16 AM CDT [facility] ENTR[facility] LABORATORY Comment: Cytology is screened at [facility] - [address], [place] [address] and [facility] - [address], [place] [address] and [facility] - [address] [place] [address] [facility] - [address], [place] [address] Automated Review Successful 01/15/2022 8:16 AM CDT [facility] Comment:Specimen processed s uccessfully by automated instantizer operator device, ThinPrep Imaging System, [employer] Note The pap test is a screening technique, not a diagnostic procedure. It is used primarily to screen for squamous cancers and precursor lesions. Published studies have shown that it is subject to both false negative and false positive results. The pap test should not be used as the sole means to diagnose or exclude pre-malignant and malignant lesions. 01/15/2022 8:16 AM CDT [facility] Other (Cervical) Non-Blood / Unknown 12/31/2021 8:09 AM CDT 12/31/2021 8:39 AM CDT us Sona Yoon MD PATHOLOGY/CYTOLOGY Final Re sult [facility] [address] [place] [address], [place] from Last 3 Months or Most Recently Relevant to Health Maintenance Insurance [employer] Care Teams Paver Layer Relationship Specialty Start Date End Date Sona Yoon MD [address] [place] [address] PCP - General Family Practice 01/30/22 Sona Yoon MD [address] [place] [address] Referring Provider Family Practice 05/16/24
== END 2024-10-26 12:37 | disposition home or self-care (01) ==
LOC: ED 10:28
PROVIDERS: Emergency Provider Emergency Medicine; PCP Family Medicine
DX: M54.9 Dorsalgia, unspecified (principal); R07.89 Other chest pain
CPT/HCPCS: 36415; 71046; 80048; 80076; 83690; 84484; 85025; 85379; 93005; 99284